=== PATIENT | female | born 1980 | race African-American/Black ===

== ENCOUNTER 2016-10-02 16:32 | Emergency (ER) | payer BC ==
[~2016-10-02] VITALS: Ht 157.5 cm; Wt 56.7 kg
[~2016-10-02 16:32] MED LIST: ADVIL200 MG ORAL; AZITHROMYCIN250 MG ORAL; NKM; NORCO 5-325 TA1 EACH ORAL; PHENERGAN6.25 MG/5 ORAL
[2016-10-02 16:46] VITALS: BP 112/70
[2016-10-02] MEDS ORDERED: Metoclopramide 10mg/10ml Liq ORAL ONE (17:00)
[2016-10-02] MEDS ORDERED: ZOFRAN4 M3 ORAL (17:05)
[2016-10-02] MEDS ORDERED: IBUPROFEN600 MG ORAL (17:05)
[2016-10-02] MEDS ORDERED: ROBAXIN-750750 MG PO (17:05)
[2016-10-02 17:10] VITALS: BP 112/70
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
== END 2016-10-02 17:15 | disposition home or self-care (01) ==
LOC: EMR 17:03
DX: S06.0X0A Concussion without loss of consciousness, initial encounter (principal); V43.52XA Car driver injured in collision with other type car in traffic accident, initial encounter; Y92.410 Unspecified street and highway as the place of occurrence of the external cause; M62.838 Other muscle spasm; M54.2 Cervicalgia
CPT/HCPCS: 81025; 99284

== ENCOUNTER 2016-10-14 12:21 | Emergency (ER) | payer BC ==
[~2016-10-14] VITALS: Ht 157.5 cm; Wt 54.4 kg
[~2016-10-14 12:21] MED LIST changes: +IBUPROFEN600 MG ORAL; +ROBAXIN-750750 MG PO; +ZOFRAN4 M3 ORAL
[2016-10-14] MEDS ORDERED: SUMATRIPTAN SU100 MG PO (12:46)
[2016-10-14] MEDS ORDERED: Ketorolac 60mg Inj IM ONE (13:15)
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
[2016-10-14] MEDS ORDERED: Metoclopramide 10mg/2ml Inj IM SCH (14:00)
[2016-10-14 14:13] VITALS: BP 107/74
[2016-10-14 14:19] VITALS: BP 107/74
== END 2016-10-14 14:20 | disposition home or self-care (01) ==
LOC: EMR 12:55
DX: R51 Headache (principal); F45.8 Other somatoform disorders; Z87.820 Personal history of traumatic brain injury
CPT/HCPCS: 96372; 99282; J2765

== ENCOUNTER 2017-05-15 00:16 | Inpatient (IN) | payer BC ==
[~2017-05-15] VITALS: Ht 157.5 cm; Wt 54.4 kg
[2017-05-15] VITALS (7 sets, daily range): BP systolic 110–135; BP diastolic 73–89
[~2017-05-15 00:16] MED LIST changes: +SUMATRIPTAN SU100 MG PO
[2017-05-15] MEDS ORDERED: Metoclopramide 10mg/2ml Inj IVP ONE (00:45)
[2017-05-15] MEDS ORDERED: DiphenhydrAMINE 50mg/ml Inj IVP ONE (00:45)
[2017-05-15] MEDS ORDERED: Ketorolac 30mg Inj IV ONE (00:45)
[2017-05-15 01:17] LABS: MEAN CORPUSCULAR HEMOGLOBIN 33.8 PG (27.0-31.0); MEAN CORPUSCULAR VOLUME 99 FL (80-99); MEAN PLATELET VOLUME 7.3 FL (6.5-10.1); PLATELET COUNT 288 K/UL (150-450); RED BLOOD COUNT 4.13 M/UL (4.20-5.40); RED CELL DISTRIBUTION WIDTH 10.2 % (11.6-14.8); WHITE BLOOD COUNT 8.9 K/UL (4.8-10.8)
[2017-05-15 01:21] LABS: APPEARANCE,URINE CLEAR; KETONES,URINE 4+ (NEGATIVE); LEUKOCYTE ESTERASE ,URINE 1+ (NEGATIVE); NITRITE,URINE NEGATIVE (NEGATIVE); PH,URINE 9 (4.5-8.0); PROTEIN,URINE 1+ (NEGATIVE); UROBILINOGEN,URINE 4 MG/DL (0.0-1.0)
[2017-05-15] MEDS ORDERED: Morphine Sulfate 4mg/ml Inj IVP ONE ×2 (01:45→03:45)
[2017-05-15 02:35] LABS: ALANINE AMINOTRANSFERASE 17 U/L (12-78); ANION GAP 13 (5-15); ASPARTATE AMINO TRANSFERASE 16 U/L (15-37); CALCIUM 9.9 MG/DL (8.5-10.1); CARBON DIOXIDE 21 MMOL/L (21-32); CHLORIDE 100 MMOL/L (98-107); GLOMERULAR FILTRATION RATE > 60 mL/min (>60); LIPASE 145 U/L (73-393); POTASSIUM 3.6 MMOL/L (3.5-5.1); SODIUM 134 MMOL/L (136-145); TOTAL PROTEIN 8.9 G/DL (6.4-8.2)
[2017-05-15 03:48] LABS: BACTERIA,URINE OCCASIONAL /HPF; RBC,URINE 0-2 /HPF (0 - 2); SQUAMOUS EPITHELIAL CELL,UR MODERATE /LPF (NONE/OCC)
[2017-05-15 05:06] LABS: BILIRUBIN,DIRECT 0.4 MG/DL (0.0-0.3)
--- NOTE | 2017-05-15 05:21 | Emergency Room Report ---
History of Present Illness General Chief Complaint: Abdominal Pain Source: Patient Present Illness HPI Patient presents with complaints of abdominal pain vomiting and diarrhea Symptoms started earlier today Patient's mom reports that they had eaten carls Koby Soon after that patient began having vomiting episode mid abdominal pain Patient points to her mid umbilical area for the pain Denies any fevers or chills denies any flank pain Rates the pain as 10 out of 10 Patient has had recent breast augmentation to the umbilical cord, patient had cyst removal 12 years ago Allergies: Coded Allergies: No Known Allergies (Unverified , 04/10/14) Patient History Past Medical History: see triage record Pertinent Family History: none Last Menstrual Period: may 03 Now: No : 4 Reviewed Nursing Documentation: PMH: Agreed, PSxH: Agreed Nursing Documentation-PMH Past Medical History: No Stated History Review of Systems All Other Systems: negative except mentioned in HPI Physical Exam Vital Signs Date Time Temp Pulse Resp B/P (MAP) Pulse Ox O2 Delivery O2 Flow Rate FiO2 05/15/17 00:23 97.5 71 18 116/76 98 Room Air Sp02 EP Interpretation: reviewed, normal General Appearance: moderate distress - In acute pain Head: normocephalic, atraumatic Eyes: bilateral eye PERRL, bilateral eye EOMI ENT: hearing grossly normal, normal pharynx, TMs + canals normal, uvula midline Neck: full range of motion, supple, no meningismus, no bony tend Respiratory: lungs clear, normal breath sounds, no rhonchi, no respiratory distress, no retraction, no accessory muscle use Cardiovascular #1: normal peripheral pulses, regular rate, rhythm, no edema, no gallop, no JVD, no murmur Gastrointestinal: normal bowel sounds, soft, no mass, no organomegaly, non- distended, no guarding, no hernia, no pulsatile mass, no rebound, tenderness - diffusely Genitourinary: no CVA tenderness Musculoskeletal: normal inspection Neurologic: oriented x3, responsive, billing supervisor III-XII nml as tested, motor strength/ tone normal, sensory intact Psychiatric: mood/affect normal Skin: normal color, no rash, warm/dry, palpation normal Lymphatic: normal inspection, no adenopathy Medical Decision Making Diagnostic Impression: Primary Impression: SBO (small bowel obstruction) ER Course With the history exam and presentation, multiple differentials considered, including but not limited to appendicitis, gastritis, cholecystitis, diverticulitis Patient had blood work and imaging study initiated CAT scan imaging is read by radiology as consistent with small bowel obstruction Patient has NG-tube ordered Patient will be remaining n.p.o. General surgery consultation and admitted for further care Labs Test 05/15/17 00:48 White Blood Count 8.9 K/UL (4.8-10.8) Red Blood Count 4.13 M/UL (4.20-5.40) Hemoglobin 14.0 G/DL (12.0-16.0) Hematocrit 41.1 % (37.0-47.0) Mean Corpuscular Volume 99 FL (80-99) Mean Corpuscular Hemoglobin 33.8 PG (27.0-31.0) Mean Corpuscular Hemoglobin Concent 34.0 G/DL (32.0-36.0) Red Cell Distribution Width 10.2 % (11.6-14.8) Platelet Count 288 K/UL (150-450) Mean Platelet Volume 7.3 FL (6.5-10.1) Neutrophils (%) (Auto) % (45.0-75.0) Lymphocytes (%) (Auto) % (20.0-45.0) Monocytes (%) (Auto) % (1.0-10.0) Eosinophils (%) (Auto) % (0.0-3.0) Basophils (%) (Auto) % (0.0-2.0) Urine Color Yellow Urine Appearance Clear Urine pH 9 (4.5-8.0) Urine Specific [place] 1.020 (1.005-1.035) Urine Protein 1+ (NEGATIVE) Urine Glucose (UA) Negative (NEGATIVE) Urine Ketones 4+ (NEGATIVE) Urine Occult Blood Negative (NEGATIVE) Urine Nitrite Negative (NEGATIVE) Urine Bilirubin Negative (NEGATIVE) Urine Urobilinogen 4 MG/DL (0.0-1.0) Urine Leukocyte Esterase 1+ (NEGATIVE) Urine RBC 0-2 /HPF (0 - 2) Urine WBC 2-4 /HPF (0 - 2) Urine Squamous Epithelial Cells Moderate /LPF (NONE/OCC) Urine Bacteria Occasional /HPF (NONE) Urine HCG, Qualitative Negative Sodium Level 134 MMOL/L (136-145) Potassium Level 3.6 MMOL/L (3.5-5.1) Chloride Level 100 MMOL/L (98-107) Carbon Dioxide Level 21 MMOL/L (21-32) Anion Gap 13 (5-15) Blood Urea Nitrogen 13 mg/dL (7-18) Creatinine 1.0 MG/DL (0.55-1.30) Estimat Glomerular Filtration Rate > 60 mL/min (>60) Glucose Level 109 MG/DL (74-106) Calcium Level 9.9 MG/DL (8.5-10.1) Total Bilirubin 2.0 MG/DL (0.2-1.0) Direct Bilirubin 0.4 MG/DL (0.0-0.3) Aspartate Amino Transf (AST/SGOT) 16 U/L (15-37) Alanine Aminotransferase (ALT/SGPT) 17 U/L (12-78) Alkaline Phosphatase 61 U/L (46-116) Total Protein 8.9 G/DL (6.4-8.2) Albumin 4.6 G/DL (3.4-5.0) Lipase 145 U/L (73-393) CT/MRI/US Diagnostic Results CT/MRI/US Diagnostic Results : Impression CT abdomen pelvis: Findings consistent with small bowel obstruction Last Vital Signs Date Time Temp Pulse Resp B/P (MAP) Pulse Ox O2 Delivery O2 Flow Rate FiO2 05/15/17 01:33 97.6 05/15/17 00:23 71 18 116/76 98 Room Air Status: improved Disposition: ADMITTED INPATIENT Condition: Serious Referrals: [facility],REFERRING (PCP) SYLVIA PEREIRA D.O. May 15, 2017 05:21
[2017-05-15 05:31] LABS: ALBUMIN/GLOBULIN RATIO 1.1 (1.0-2.7)
--- NOTE | 2017-05-15 09:16 | Diagnostic Imaging Report ---
Indication: Abdominal pain Technique: Continuous helical transaxial imaging of the abdomen and pelvis was obtained from the lung bases to the pubic symphysis during intravenous contrast administration. Coronal 2-D reformats were also obtained. Study obtained in a Siemens sensation [address] Total Dose length Product (DLP): [address] Dose Index Volume (CTDIvol): 11.29, 0.15 mGy Comparison: None Findings: The lung bases are clear. There are multiple moderately distended and fluid-filled loops of small bowel. There is a transition noted in the left lower quadrant images 46-49. There is retained stool within the colon. The uterus and adnexa appear unremarkable. Bladder is unremarkable. No free air or free fluid identified. The liver, spleen, pancreas, gallbladder and kidneys are unremarkable. Impression: Evidence of small bowel obstruction with the transition identified in the left lower quadrant of abdomen. [facility] has communicated the preliminary results to the Emergency Department. Their findings are largely concordant with this report. The CT scanner at [facility] is accredited by the [employer] [place] and the scans are performed using dose optimization techniques as appropriate to a performed exam including Automatic Exposure control.
[2017-05-15 10:08] LABS: BAND NEUTROPHILS % (MANUAL) 0 % (0-8); BASOPHILS % (MANUAL) 0 % (0-2); EOSINOPHILS % (MANUAL) 0 % (0-3); LYMPHOCYTES % (MANUAL) 5 % (20-45); NEUTROPHILS % (MANUAL) 91 % (45-75); PLATELET ESTIMATE ADEQUATE; PLATELET MORPHOLOGY NORMAL; TOTAL CELLS COUNTED 100
--- NOTE | 2017-05-15 10:24 | General Progress Note ---
Progress Note Progress Note Called by ed this am for pt with sbo. pt seen and examined. CT reviewed with radioloogist consult dictated [id number] Imp SBO Etio possibly 2o to adhesions from previosl surgery Plan Attempt nonoperative care with ng decompression, serial exams and xrays Ex lap if she cristofer not respond. thanks JOESPH Jean-Baptiste May 15, 2017 10:24
[2017-05-15] MEDS: HYDROmorphone 1mg/ml Carpuject IVP PRN ×3 (11:00→22:37)
--- NOTE | 2017-05-15 13:42 | GI Initial Consult Note ---
History of Present Illness General Date patient seen: May 15, 2017 Time patient seen: 10:00 Reason for Hospitalization: Abdominal Pain Referring physician: BEENA STYLES Reason for Consultation: ABDOMINAL PAIN Present Illness HPI Patient presents with complaints of abdominal pain vomiting and diarrhea Symptoms started earlier today Patient's mom reports that they had eaten carls [place]oby Soon after that patient began having vomiting episode mid abdominal pain Patient points to her mid umbilical area for the pain Denies any fevers or chills denies any flank pain Rates the pain as 10 out of 10 Patient has had recent breast augmentation to the umbilical cord, patient had cyst removal 12 years ago GI consulted for abdominal pain. HPI as noted above. Pt seen on floor, awake A&Ox4 NAD with c/o of N/D currently on NPO, NGT to LIS. AP CT shows LLQ SBO most likely due to intestinal adhesions. Presents today with elevated bilirubin. No leukocytosis noted. Home Meds Active Scripts Ondansetron* (ZOFRAN*) 4 Mg Tablet, 4 MG ORAL Q6H Y for Nausea & Vomiting, #10 TAB Prov:TERZIAN,KRISTEN P.A. 10/02/16 Methocarbamol* (ROBAXIN-750*) 750 Mg Tablet, 750 MG PO TID, #21 TAB 0 Refills Prov:TERZIAN,KRISTEN P.A. 10/02/16 Ibuprofen* (MOTRIN*) 600 Mg Tablet, 600 MG ORAL Q8H Y for For Pain, #30 TAB 0 Refills Prov:TERZIAN,KRISTEN P.A. 10/02/16 Promethazine/Dextromethorphan (Promethazine-Dm Syrup) 6.25 Mg/5 Ml Syrp, 1 TSP ORAL Q6H Y for For Cough, #118 ML 0 Refills Prov:Nicola Sánchez 08/25/15 Azithromycin* (ZITHROMAX*) 250 Mg Tablet, 250 MG ORAL DAILY, #6 TAB Prov:Nicola Sánchez 08/25/15 Hydrocodone Bit/Acetaminophen 5-325* (NORCO 5-325*) 1 Each Tablet, 1 TAB ORAL Q6H Y for For Pain, #20 TAB Prov:JOSE RAFAEL HARTLEY P.A. 04/10/14 Reported Medications Sumatriptan Succinate (SUMATRIPTAN SUCCINATE) 100 Mg Tablet, 100 MG PO BID, TAB 10/14/16 Ibuprofen* (ADVIL*) 200 Mg Tablet, 400 MG ORAL Q6H, TAB 04/10/14 Med list reviewed/reconciled: Yes Allergies: Coded Allergies: No Known Allergies (Unverified , 04/10/14) Patient History History Provided By: Patient, Medical Record PMH Narrative Past Medical History: see triage record Pertinent Family History: none Last Menstrual Period: May 03 Now: No : 4 Reviewed Nursing Documentation: PMH: Agreed, PSxH: Agreed Review of Systems All Other Systems: negative except mentioned in HPI Physical Exam Vital Signs Date Time Temp Pulse Resp B/P (MAP) Pulse Ox O2 Delivery O2 Flow Rate FiO2 05/15/17 00:23 97.5 71 18 116/76 98 Room Air Sp02 EP Interpretation: reviewed Labs Laboratory Tests Test 05/15/17 00:48 White Blood Count 8.9 K/UL (4.8-10.8) Red Blood Count 4.13 M/UL (4.20-5.40) L Hemoglobin 14.0 G/DL (12.0-16.0) Hematocrit 41.1 % (37.0-47.0) Mean Corpuscular Volume 99 FL (80-99) Mean Corpuscular Hemoglobin 33.8 PG (27.0-31.0) H Mean Corpuscular Hemoglobin Concent 34.0 G/DL (32.0-36.0) Red Cell Distribution Width 10.2 % (11.6-14.8) L Platelet Count 288 K/UL (150-450) Mean Platelet Volume 7.3 FL (6.5-10.1) Neutrophils (%) (Auto) % (45.0-75.0) Lymphocytes (%) (Auto) % (20.0-45.0) Monocytes (%) (Auto) % (1.0-10.0) Eosinophils (%) (Auto) % (0.0-3.0) Basophils (%) (Auto) % (0.0-2.0) Differential Total Cells Counted 100 Neutrophils % (Manual) 91 % (45-75) H Lymphocytes % (Manual) 5 % (20-45) L Monocytes % (Manual) 4 % (1-10) Eosinophils % (Manual) 0 % (0-3) Basophils % (Manual) 0 % (0-2) Band Neutrophils 0 % (0-8) Platelet Estimate Adequate Platelet Morphology Normal Urine Color Yellow Urine Appearance Clear Urine pH 9 (4.5-8.0) Urine Specific [place] 1.020 (1.005-1.035) Urine Protein 1+ (NEGATIVE) H Urine Glucose (UA) Negative (NEGATIVE) Urine Ketones 4+ (NEGATIVE) H Urine Occult Blood Negative (NEGATIVE) Urine Nitrite Negative (NEGATIVE) Urine Bilirubin Negative (NEGATIVE) Urine Urobilinogen 4 MG/DL (0.0-1.0) H Urine Leukocyte Esterase 1+ (NEGATIVE) H Urine RBC 0-2 /HPF (0 - 2) Urine WBC 2-4 /HPF (0 - 2) Urine Squamous Epithelial Cells Moderate /LPF (NONE/OCC) H Urine Bacteria Occasional /HPF (NONE) Urine HCG, Qualitative Negative Sodium Level 134 MMOL/L (136-145) L Potassium Level 3.6 MMOL/L (3.5-5.1) Chloride Level 100 MMOL/L (98-107) Carbon Dioxide Level 21 MMOL/L (21-32) Anion Gap 13 (5-15) Blood Urea Nitrogen 13 mg/dL (7-18) Creatinine 1.0 MG/DL (0.55-1.30) Estimat Glomerular Filtration Rate > 60 mL/min (>60) Glucose Level 109 MG/DL (74-106) H Calcium Level 9.9 MG/DL (8.5-10.1) Total Bilirubin 2.0 MG/DL (0.2-1.0) H Direct Bilirubin 0.4 MG/DL (0.0-0.3) H Aspartate Amino Transf (AST/SGOT) 16 U/L (15-37) Alanine Aminotransferase (ALT/SGPT) 17 U/L (12-78) Alkaline Phosphatase 61 U/L (46-116) Total Protein 8.9 G/DL (6.4-8.2) H Albumin 4.6 G/DL (3.4-5.0) Globulin 4.3 g/dL Albumin/Globulin Ratio 1.1 (1.0-2.7) Lipase 145 U/L (73-393) General Appearance: well appearing, no apparent distress, alert Head: normocephalic EENT: PERRL/EOMI, normal ENT inspection Neck: full range of motion, supple Respiratory: normal breath sounds, no respiratory distress Cardiovascular: normal rate Gastrointestinal: ngt Musculoskeletal: back normal Neurologic: alert, oriented x3, responsive Psychiatric: normal inspection, judgement/insight normal, memory normal Skin: normal inspection, normal color, no rash, warm/dry Lymphatic: normal inspection, no adenopathy Current Medications Current Medications Medications (Trade) Dose Ordered Sig/Tori Route PRN Reason Start Time Stop Time Status Last Admin Dose Admin Dextrose/ Electrolytes 1,000 ml @ 125 mls/hr Q8H IV 05/16/17 13:00 06/15/17 12:59 Hydromorphone HCl (Dilaudid) 1 mg Q4H PRN IVP For Pain 05/15/17 10:45 05/22/17 10:44 05/15/17 11:00 GI: Plan Problems: (1) SBO (small bowel obstruction) Plan fu surgical recs >> SBO 2/2 adhesions from previous surgery trial of non operative management, ex lap if fails. NPO + IVFs bowel decompression >> NGT to LIS pain mgmt serial monitoring repeat imaging prn abx fu labs Discussed with Dr. Richards. Thank you for this patient referral, we will follow. Daniella Del Toro N.P. May 15, 2017 13:42
--- NOTE | 2017-05-15 13:58 | Diagnostic Imaging Report ---
Indication: Abdominal pain Comparison: None Single view of the abdomen obtained Findings: Bowel gas pattern is nonspecific. NG tube is in good position with the proximal and distal ports in the stomach. No mass, ectopic calcifications, or abnormal gas collections are identified. The bones are unremarkable. Impression: NG-tube in good position. No acute findings.
--- NOTE | 2017-05-15 17:45 | Consultation ---
DATE OF CONSULTATION: 05/15/2017 SURGICAL CONSULTATION SURGEON: Juan Alberto Reyes M.D. REASON FOR CONSULT: Abdominal pain and small bowel obstruction. PRESENT HISTORY: This is a very pleasant 37-year-old woman, presented to the [facility] with complaints of abdominal pain. The patient had presented with vomiting and diarrhea starting yesterday. The patient's pain began after eating at a fast food restaurant. Pain localized to the umbilical area. She has had multiple episodes of diarrhea for same. She had no previous symptoms. PAST MEDICAL HISTORY: Unremarkable. PAST SURGICAL HISTORY: She had a pelvic surgery for removal of a cyst some 12 years ago. She is also status post breast augmentation that was done through an umbilical incision. ALLERGIES: None. MEDICATIONS: Taken none. REVIEW OF SYSTEMS: PULMONARY: No history of asthma, bronchitis, emphysema, or pneumonia. CARDIAC: No history of chest pains, palpitations, or irregular heartbeat. GASTROINTESTINAL: No history of prior to today nausea, vomiting, diarrhea, constipation, hepatitis, jaundice, or pancreatitis. GENITOURINARY: No dysuria or hematuria. PHYSICAL EXAMINATION: GENERAL: A well-developed woman, in [id number] distress. Awake, alert, and cooperative. VITAL SIGNS: Temperature is 97.6, pulse is 65, respirations 18, blood pressure 119/76, and O2 saturation of 97%. HEENT: NG is in place, but not . It has been repositioned. NECK: Supple. LUNGS: Clear. HEART: Normal sinus rhythm. ABDOMEN: Mildly distended. There are scars from previous surgeries. She does have an umbilical hernia that is reducible. EXTREMITIES: No clubbing, cyanosis, or edema. LABORATORY DATA: Laboratory exams show white blood count of 8.9, hemoglobin 14, hematocrit of 41.1, and platelet count is 288,000. Chemistry, sodium 134, potassium 3.6, chloride 100, bicarbonate 21, creatinine is 1.0, BUN of 13, glucose 109, total bilirubin 2.0, direct bilirubin 0.4, AST of 16, ALT of 17, alkaline phosphatase of 61, and lipase is 147. CT scan reviewed with the radiologist, which does show evidence of a small bowel obstruction with multiple moderately distended fluid-filled loops of small bowel, transition in the left lower quadrant. IMPRESSION: 1. Abdominal pain. 2. Partial small bowel obstruction. PLAN: The patient is undergoing NG decompression. We will get serial x-rays and laboratories. I have explained to the patient in detail the differential diagnosis of bowel obstruction. We hope that this can be resolved nonsurgically with NG decompression in time. Possibly she may require surgery, which would involve exploratory laparotomy and possible bowel resection. She understands the above and agrees with the plan. Juan Alberto Reyes M.D. DR: LARS JOB#: [id number] CC: Juan Alberto Millan M.D.; Fax#: [phone] BEENA STYLES M.D. ; FAX#: [phone]
[2017-05-16] VITALS: BP 116/80
--- NOTE | 2017-05-16 01:30 | History and Physical Report ---
DATE OF ADMISSION: 05/15/2017 HISTORY OF PRESENT ILLNESS: This is a 37-year-old female, who has past medical history of surgery on abdomen for ovarian cyst removal, also has breast augmentation and came to the emergency room for having recurrent nausea, vomiting, and abdominal pain one day prior to admission. The patient claims she has been eating lot of grains and liquids. She has no fever. No chills. PAST MEDICAL HISTORY: Anxiety and status post ovarian cyst surgery. ALLERGIES: NKA. MEDICATIONS: None. PHYSICAL EXAMINATION: GENERAL: This is a young, female, looks comfortable. Her pain level is 4/10. VITAL SIGNS: Blood pressure 120/70, pulse 60, and respirations 18. No fever. SKIN: Good skin turgor. HEENT: NAD. CHEST: Bilaterally clear. CARDIOVASCULAR: Regular rhythm. No gallop. No murmur. ABDOMEN: No bowel sounds. Mild tenderness. EXTREMITIES: No CCE. NEUROLOGICAL: No focal deficit. ASSESSMENT: 1. Small bowel obstruction. 2. Status post ovarian cyst removal. 3. History of breast augmentation. PLAN: We will keep her NPO. NG tube suction low to intermittent. Continue IV fluid, morphine, and Ativan p.r.n. for anxiety. Surgery is on case. Bradley De La Cruz M.D. DR: HECTOR JOB#: [id number] CC:
[2017-05-16] MEDS: HYDROmorphone 1mg/ml Carpuject IVP PRN ×5 (03:45→20:29)
[2017-05-16 04:00] VITALS: BP 110/75
[2017-05-16 08:49] VITALS: BP 123/85
[2017-05-16 09:40] LABS: BASOPHILS % (AUTO) 1.2 % (0.0-2.0); MEAN CORPUSCULAR HEMOGLOBIN 33.6 PG (27.0-31.0); MEAN CORPUSCULAR HGB CONC 32.8 G/DL (32.0-36.0); MEAN CORPUSCULAR VOLUME 103 FL (80-99); MEAN PLATELET VOLUME 7.2 FL (6.5-10.1); NEUTROPHILS % (AUTO) 76.8 % (45.0-75.0); PLATELET COUNT 221 K/UL (150-450); RED BLOOD COUNT 3.69 M/UL (4.20-5.40); RED CELL DISTRIBUTION WIDTH 10.6 % (11.6-14.8); WHITE BLOOD COUNT 8.4 K/UL (4.8-10.8)
--- NOTE | 2017-05-16 09:41 | General Progress Note ---
Assessment/Plan Problem List: (1) SBO (small bowel obstruction) ICD Codes: K56.609 - Unspecified intestinal obstruction, unspecified as to partial versus complete obstruction SNOMED: 440433289 Assessment/Plan ambulate daily exam NGT fu surgery recs Subjective ROS Limited/Unobtainable: Yes Allergies: Coded Allergies: No Known Allergies (Unverified , 04/10/14) Subjective decreased abd pain no flatus Objective Last 24 Hour Vital Signs Date Time Temp Pulse Resp B/P (MAP) Pulse Ox O2 Delivery O2 Flow Rate FiO2 05/16/17 08:49 97.5 67 20 123/85 99 Room Air 05/16/17 04:00 97.4 61 17 110/75 96 Room Air 05/16/17 00:00 97.5 60 17 116/80 96 Room Air 05/15/17 20:00 97.8 59 18 116/75 95 Room Air 05/15/17 12:00 97.7 63 18 110/73 96 Room Air Laboratory Tests 05/16/17 08:40: White Blood Count [Pending], Red Blood Count [Pending], Hemoglobin [Pending], Hematocrit [Pending], Mean Corpuscular Volume [Pending], Mean Corpuscular Hemoglobin [Pending], Mean Corpuscular Hemoglobin Concent [Pending], Red Cell Distribution Width [Pending], Platelet Count [Pending], Mean Platelet Volume [ Pending], Neutrophils (%) (Auto) [Pending], Lymphocytes (%) (Auto) [Pending], Monocytes (%) (Auto) [Pending], Eosinophils (%) (Auto) [Pending], Basophils (%) (Auto) [Pending], Sodium Level [Pending], Potassium Level [Pending], Chloride Level [Pending], Carbon Dioxide Level [Pending], Blood Urea Nitrogen [Pending], Creatinine [Pending], Estimat Glomerular Filtration Rate [Pending], Glucose Level [Pending], Calcium Level [Pending], Total Bilirubin [Pending], Aspartate Amino Transf (AST/SGOT) [Pending], Alanine Aminotransferase (ALT/SGPT) [Pending] , Alkaline Phosphatase [Pending], Total Protein [Pending], Albumin [Pending], Globulin [Pending] Height (Feet): 5 Height (Inches): 2.00 Weight (Pounds): 120 General Appearance: alert EENT: normal ENT inspection Neck: supple Cardiovascular: normal rate Respiratory/Chest: lungs clear Abdomen: non tender, soft, absent bowel sounds Extremities: non-tender JESSIE NEFF May 16, 2017 09:41
--- NOTE | 2017-05-16 10:05 | Diagnostic Imaging Report ---
The patient: Abdominal distention Comparison: 05/15/2013 Findings: Portable supine view of the abdomen was performed. Nasogastric tube is seen with distal tip overlying the expected region of the stomach. There is a nonobstructive bowel gas pattern. No significantly dilated loops of bowel, air-fluid levels or free air is identified. Gas and stool seen throughout the colon. Bones are unremarkable. Impression: Nasogastric tube appears to be in good position. Nonobstructive bowel gas pattern.
--- NOTE | 2017-05-16 10:35 | General Progress Note ---
Progress Note Progress Note Surgery: patient seen and examined at bedside. no acute events. doing well. pain resolved. no n/v/f/c. minimal NG tube output. no flatus or BM yet. Afebrile, HD stable, KUB reviewed, labs okay Abdomen soft, nt/nd, bowel sounds hypoactive 37F with SBO; slowly improving -NPO with IV fluids -okay for ice chips -NG tube to suction -Ambulate and OOB -awaiting return of bowel function Tano Ibrahim May 16, 2017 10:35
[2017-05-16 10:48] LABS: ALANINE AMINOTRANSFERASE 14 U/L (12-78); ALBUMIN/GLOBULIN RATIO 0.9 (1.0-2.7); ANION GAP 8 (5-15); ASPARTATE AMINO TRANSFERASE 14 U/L (15-37); CARBON DIOXIDE 23 MMOL/L (21-32); CHLORIDE 104 MMOL/L (98-107); CREATININE 0.8 MG/DL (0.55-1.30); GLOMERULAR FILTRATION RATE > 60 mL/min (>60); POTASSIUM 3.7 MMOL/L (3.5-5.1); SODIUM 135 MMOL/L (136-145); TOTAL PROTEIN 7.3 G/DL (6.4-8.2)
[2017-05-16] MEDS: LORazepam 0.5mg tab SL PRN (10:51)
[2017-05-16 11:21] LABS: CALCIUM 8.3 MG/DL (8.5-10.1)
[2017-05-16 11:55] VITALS: BP 127/82
[2017-05-16 12:18] LABS: BILIRUBIN,DIRECT 0.2 MG/DL (0.0-0.3)
[2017-05-16 16:01] VITALS: BP 125/76
[2017-05-16 20:20] VITALS: BP 130/82
[2017-05-17] VITALS: BP 136/81
[2017-05-17] MEDS: HYDROmorphone 1mg/ml Carpuject IVP PRN ×5 (01:28→22:56)
[2017-05-17 04:00] VITALS: BP 123/80
[2017-05-17 08:00] VITALS: BP 119/79
--- NOTE | 2017-05-17 11:51 | General Progress Note ---
Assessment/Plan Problem List: (1) SBO (small bowel obstruction) ICD Codes: K56.609 - Unspecified intestinal obstruction, unspecified as to partial versus complete obstruction SNOMED: 197923999 Assessment/Plan ambulate daily exam NGT was removed fu surgery recs kub dulcolax sup Subjective ROS Limited/Unobtainable: Yes Allergies: Coded Allergies: No Known Allergies (Unverified , 04/10/14) Subjective decreased abd pain no flatus Objective Last 24 Hour Vital Signs Date Time Temp Pulse Resp B/P (MAP) Pulse Ox O2 Delivery O2 Flow Rate FiO2 05/17/17 08:00 97.6 81 20 119/79 97 Room Air 05/17/17 04:00 98.0 71 16 123/80 100 Room Air 05/17/17 00:00 98.3 70 16 136/81 98 Room Air 05/16/17 20:20 97.4 68 20 130/82 100 Room Air 05/16/17 16:01 98.9 68 20 125/76 97 Room Air 05/16/17 11:55 97.8 66 20 127/82 100 Room Air Intake and Output 05/17/17 05/18/17 19:00 07:00 Intake Total 860 ml Balance 860 ml Intake Oral 360 ml IV Total 500 ml # Voids 2 Height (Feet): 5 Height (Inches): 2.00 Weight (Pounds): 120 General Appearance: no apparent distress EENT: normal ENT inspection Neck: supple Cardiovascular: normal rate Respiratory/Chest: decreased breath sounds Abdomen: soft, decreased bowel sounds, distended Extremities: non-tender JESSIE NEFF May 17, 2017 11:51
[2017-05-17 12:00] VITALS: BP 124/84
--- NOTE | 2017-05-17 14:04 | General Progress Note ---
Progress Note Progress Note Surgery: no acute events. ng tube removed this AM. no nausea or emesis. no fever or chills. labs okay. exam with more distention today. soft, non tender, but tympanic. -NPO. she is NOT ready for a diet -IV fluids @ 125 -enema prn -awaiting return of bowel function -KULily tomorrow. Tano Ibrahim May 17, 2017 14:04
[2017-05-17] MEDS ORDERED: Fleet's Enema 133ml RECTAL ONE (14:15)
[2017-05-17] MEDS ORDERED: Fleet's Enema 133ml RECTAL PRN ×2 (14:15→15:00)
[2017-05-17] MEDS ORDERED: NS 275ml ONE (15:32)
[2017-05-17 16:00] VITALS: BP_SYST 109; BP_SYST 112; BP_DIAS 67; BP_DIAS 73
[2017-05-17] MEDS: LORazepam 0.5mg tab SL PRN (17:53)
[2017-05-17 20:00] VITALS: BP 125/78
[2017-05-18 04:00] VITALS: BP 116/64
[2017-05-18] MEDS: HYDROmorphone 1mg/ml Carpuject IVP PRN (05:21)
[2017-05-18 08:00] VITALS: BP 115/87
--- NOTE | 2017-05-18 08:31 | Progress Note ---
DATE: 05/16/2017 SUBJECTIVE: This is a 37-year-old female, sleeping in the bed, comfortable. Pain is controlled. Pain is much better. Nausea and vomiting resolved. The patient had NG tube. patient is, otherwise, comfortable. She has no bowel sounds. The patient has been moving. OBJECTIVE: VITAL SIGNS: Stable. CHEST: Bilaterally clear. CARDIOVASCULAR: Regular rhythm. ABDOMEN: Soft. Positive bowel sounds. No tenderness. EXTREMITIES: No swelling. ASSESSMENT AND PLAN: 1. Small bowel obstruction. 2. Status post ovarian surgery. PLAN: Continue NG tube. . Continue Zofran. Continue morphine. We will discontinue NG tube tomorrow. We will start clear liquid diet. The patient probably can go home tomorrow. . Bradley De La Cruz M.D. DR: HECTOR JOB#: [id number] CC:
--- NOTE | 2017-05-18 10:47 | Diagnostic Imaging Report ---
Indication: Abdominal pain Technique: Supine view of the abdomen Comparison: 05/16/2017 Findings: Previous demonstrated nasogastric tube is no longer evident. Prominent borderline dilated mid abdominal small bowel loops are again demonstrated. There is increased stool in the right colon. Impression: Prominent borderline nondilated gas-filled mid abdominal small bowel loops again demonstrated, also demonstrated on recent studies, as well as on CT of 05/15/2017. May reflect persistent small bowel obstruction
[2017-05-18 12:00] VITALS: BP 120/75
--- NOTE | 2017-05-18 12:09 | General Progress Note ---
Progress Note Progress Note Surgery: no acute events. doing well. had emesis after pain meds. no nausea or emesis since she stopped taking pain meds. passing flatus. small BM no n/v/f/c. KUB improve exam with mild distention, soft, non tender, bs+ -start clear liquids -d/c pain meds -ambulate and oob -awaiting full return of bowel function Tano Ibrahim May 18, 2017 12:09
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
[2017-05-18 16:00] VITALS: BP 117/66
--- NOTE | 2017-05-18 19:48 | General Progress Note ---
Progress Note Progress Note Surgery: called to see patient at bedside. over the past few hours patient has noted worsening abdominal pain and has developed worsening nausea and multiple bouts of bilious emesis. patient made npo until my arrival at 5pm. when seen at bedside, patient seems uncomfortable and in mild distress. she is bending forward and in front of me had multiple episodes of large bilious emesis. when examined, patient noted to have a but more distended abdomen and has right lower quadrant tenderness now. abdomen tympanic as well. I had a long >1hr with patient and her friend over the phone. I explained the findings and the acuity of change in condition. I explained rational for npo, iv fluids, and ng tube. I also discuss rational for surgery. Patient agreed to npo and iv fluids. she absolutely refuses ng tube despite long discussion about risks and benefits. she asked for a second opinion and Dr. Carrillo was available to come see the patient. Dr. Carrillo evaluated patient and records and agreed with decisions. when discussing surgery with patient he explained the risks, benefits, and alternatives to surgery with patient. During explanation patient expressed that she was no longer interested in surgery by a member or our surgical team and would prefer a new surgeon. Patient expresses that she wants surgery and that she understands that she needs given her acute changes but she is unhappy with the possible risks the surgery has and would not give informed consent if these are the risks that are possible. Both Dr. Carrillo and myself expressed that these risks are inherent to the surgery regardless of the surgeon and more associated with the surgery and not the specific surgeon. She expressed that she does not like the possible risks that may be associated with the surgery and would like another surgery to discuss surgery with her and operate on her. I expressed to her that she is placing herself in danger given persistent emesis. There is a strong recommendation for NG tube decompression and at the least a diagnostic laparoscopy. She expressed understanding with clear understanding. she verbalizes feedback of risks and continues to decline intervention and our services. Will discuss with primary physician and see if another surgeon is available to see the patient. Tano Ibrahim May 18, 2017 19:48
[2017-05-18 20:00] VITALS: BP 115/71
--- NOTE | 2017-05-18 20:54 | General Progress Note ---
Progress Note Progress Note Surgery: called back by patient to speak with mother and sister on the phone. with patients permission spoke with mother and sister. explained in detail current medical status and care from upon admission to this point. expressed rational for ng tube and surgery. patient and family asked me to stay on case and continue with care. patients mother and sister strongly recommended to patient to have ng tube placed and surgery as needed. patient still undecided and wants time to think about it. in the end she is an adult with full functional capability and clear mental status. she will need to decide what care she would or would not like. I will return in the morning to discuss with her again. I am available via cell and pager [employer] if needed. if change in condition or status please call me servando. Tano Ibrahim May 18, 2017 20:54
[2017-05-18] MEDS ORDERED: Chloraseptic Spray 20mL Bottle ORAL PRN (21:30)
[2017-05-18] MEDS: LORazepam 0.5mg tab SL PRN (22:16)
[2017-05-19] VITALS (11 sets, daily range): BP systolic 115–134; BP diastolic 72–81
[2017-05-19] MEDS: Pantoprazole Inj IVP SCH (09:00)
[2017-05-19 12:40] LABS: MEAN CORPUSCULAR HEMOGLOBIN 35.3 PG (27.0-31.0); MEAN CORPUSCULAR HGB CONC 35.1 G/DL (32.0-36.0); MEAN CORPUSCULAR VOLUME 101 FL (80-99); MEAN PLATELET VOLUME 7.5 FL (6.5-10.1); PLATELET COUNT 222 K/UL (150-450); RED CELL DISTRIBUTION WIDTH 10.1 % (11.6-14.8); WHITE BLOOD COUNT 4.6 K/UL (4.8-10.8)
[2017-05-19 12:48] LABS: ANION GAP 13 mmol/L (5-15); CALCIUM 8.9 MG/DL (8.5-10.1); CARBON DIOXIDE 23 MMOL/L (21-32); CHLORIDE 106 MMOL/L (98-107); GLOMERULAR FILTRATION RATE > 60 mL/min (>60); POTASSIUM 3.1 MMOL/L (3.5-5.1); SODIUM 142 MMOL/L (136-145)
--- NOTE | 2017-05-19 13:33 | Diagnostic Imaging Report ---
Indication: Abdominal pain Comparison: 05/18/17 Single view of the abdomen obtained Persistent dilated small bowel noted within the mid abdomen. Moderate fecal retention in the right hemicolon again noted. Findings are unchanged. Impression: No change management analyst the last day
[2017-05-19 13:45] LABS: LYMPHOCYTES % (MANUAL) 16 % (20-45); NEUTROPHILS % (MANUAL) 58 % (45-75); TOTAL CELLS COUNTED 100
[2017-05-19 13:46] LABS: BAND NEUTROPHILS % (MANUAL) 0 % (0-8); BASOPHILS % (MANUAL) 0 % (0-2); EOSINOPHILS % (MANUAL) 0 % (0-3); MACROCYTES 1+; PLATELET ESTIMATE ADEQUATE; PLATELET MORPHOLOGY NORMAL
[2017-05-19] MEDS ORDERED: Hydromorphone 0.5mg/0.5ml inj IVP PRN ×2 (14:15→18:30)
[2017-05-19] MEDS ORDERED: Lidocaine HCl 2% Jelly 5ml Tube TOPIC PRN (14:30)
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
[2017-05-19] MEDS ORDERED: Bupivacaine w/Epi 0.5% 30ml Vial INJ ONE (14:36)
--- NOTE | 2017-05-19 14:37 | Anethesia Preoperative Eval ---
Anesthesia Pre-op PMH/ROS General Date of Evaluation: May 19, 2017 Time of Evaluation: 16:22 Anesthesiologist: Pola ASA Score: ASA 3 Mallampati Score Class I : Soft palate, uvula, fauces, pillars visible Class II: Soft palate, uvula, fauces visible Class III: Soft palate, base of uvula visible Class IV: Only hard plate visible Mallampati Classification: Class II Surgeon: [place] Diagnosis: Small Bowel Obstruction Surgical Procedure: Relieve Small Bowel Obstruction Anesthesia History: none Family History: no anesthesia problems Allergies: Coded Allergies: No Known Allergies (Unverified , 04/10/14) Medications: see eMAR Past Medical History Gastrointestinal/Genitourinary: Reports: other - SBO Hematology/Immune: Reports: anemia PSxH Narrative: Ovarian Cyst, Breast Aug Anesthesia Pre-op Phys. Exam Physician Exam Last Vital Signs Date Time Temp Pulse Resp B/P (MAP) Pulse Ox O2 Delivery O2 Flow Rate FiO2 05/19/17 08:00 97.9 63 20 115/80 99 Room Air Constitutional: NAD Neurologic: CN 2-12 intact Cardiovascular: RRR Respiratory: CTA Gastrointestinal: S/NT/ND Airway Exam Mallampati Score: Class II MO: full ROM: full Teeth: intact Anesthesia Pre-op A/P Labs Hematology Test 05/19/17 12:15 White Blood Count 4.6 K/UL (4.8-10.8) L Red Blood Count 3.50 M/UL (4.20-5.40) L Hemoglobin 12.4 G/DL (12.0-16.0) Hematocrit 35.2 % (37.0-47.0) L Mean Corpuscular Volume 101 FL (80-99) H Mean Corpuscular Hemoglobin 35.3 PG (27.0-31.0) H Mean Corpuscular Hemoglobin Concent 35.1 G/DL (32.0-36.0) Red Cell Distribution Width 10.1 % (11.6-14.8) L Platelet Count 222 K/UL (150-450) Mean Platelet Volume 7.5 FL (6.5-10.1) Neutrophils (%) (Auto) % (45.0-75.0) Lymphocytes (%) (Auto) % (20.0-45.0) Monocytes (%) (Auto) % (1.0-10.0) Eosinophils (%) (Auto) % (0.0-3.0) Basophils (%) (Auto) % (0.0-2.0) Differential Total Cells Counted 100 Neutrophils % (Manual) 58 % (45-75) Lymphocytes % (Manual) 16 % (20-45) L Monocytes % (Manual) 26 % (1-10) H Eosinophils % (Manual) 0 % (0-3) Basophils % (Manual) 0 % (0-2) Band Neutrophils 0 % (0-8) Platelet Estimate Adequate Platelet Morphology Normal Macrocytosis 1+ Chemistry Test 05/19/17 12:15 Sodium Level 142 MMOL/L (136-145) Potassium Level 3.1 MMOL/L (3.5-5.1) L Chloride Level 106 MMOL/L (98-107) Carbon Dioxide Level 23 MMOL/L (21-32) Anion Gap 13 mmol/L (5-15) Blood Urea Nitrogen 8 mg/dL (7-18) Creatinine 1.0 MG/DL (0.55-1.30) Estimat Glomerular Filtration Rate > 60 mL/min (>60) Glucose Level 126 MG/DL (74-106) H Lactic Acid Level 1.60 mmol/L (0.66-2.22) Calcium Level 8.9 MG/DL (8.5-10.1) Risk Assessment & Plan Assessment: ASA 3 Plan: GA, BIS, Glidescope Status Change Before Surgery: No Pre-Antibiotics Dru Gram Ancef IV Given Within 1 Hr of Incision: Yes Time Given: 16:41 Jonel Escalona MD May 19, 2017 14:36
--- NOTE | 2017-05-19 16:08 | Pre-Procedure Note/Attestation ---
Pre-Procedure Note/Attestation Complete Prior to Procedure Planned Procedure: not applicable Procedure Narrative: diagnostic laparoscopy, possible laparotomy, possible bowel resection, possible ostomy Indications for Procedure Pre-Operative Diagnosis: bowel obstruction Attestation I attest that I discussed the nature of the procedure; its benefits; risks and complications; and alternatives (and the risks and benefits of such alternatives ), prior to the procedure, with the patient (or the patient's legal human resources representative). I attest that, if there was a reasonable possibility of needing a blood transfusion, the patient (or the patient's legal human resources representative) was given the [facility] standardized written summary, pursuant to the [place] Blood Safety Act ([place] Health and Safety Code # 1645, as amended). I attest that I re-evaluated the patient just prior to the surgery and that there has been no change in the patient's H&P, except as documented below: Tano Ibrahim May 19, 2017 16:08
[2017-05-19] MEDS ORDERED: Propofol 200mg/20ml IV ONE (16:17)
[2017-05-19] MEDS ORDERED: NS Irrig 1000ml ONE (16:22)
[2017-05-19] MEDS ORDERED: LR 1000ml ONE (16:22)
[2017-05-19] MEDS ORDERED: Lidocaine 1% MPF 10mg/ml 5ml ONE (16:22)
[2017-05-19] MEDS ORDERED: Glycopyrrolate 0.2mg/ml 1ml Vial ONE (16:22)
[2017-05-19] MEDS ORDERED: fentaNYL 100 mcg/2 mL IV ONE (16:22)
[2017-05-19] MEDS ORDERED: Neostigmine 1mg/ml 10ml Inj ONE (16:22)
[2017-05-19] MEDS ORDERED: Zemuron 50mg/5ml Inj IV ONE (16:22)
[2017-05-19] MEDS ORDERED: Dexamethasone 4mg/ml vial ONE (16:22)
[2017-05-19] MEDS ORDERED: Lidocaine 1% Plain 30 ml INJ ONE (16:22)
[2017-05-19] MEDS ORDERED: DiphenhydrAMINE 50mg/ml Inj IVP PRN (17:00)
[2017-05-19] MEDS ORDERED: Ketorolac 60mg Inj IV PRN (17:00)
[2017-05-19] MEDS ORDERED: fentaNYL 100 mcg/2 mL IV PRN (17:00)
[2017-05-19] MEDS ORDERED: Norco 5mg/325mg tab ORAL PRN (17:00)
[2017-05-19] MEDS ORDERED: Metoclopramide 10mg/2ml Inj IVP PRN (17:00)
[2017-05-19] MEDS ORDERED: Ketorolac 30mg Inj IV PRN (17:00)
[2017-05-19] MEDS ORDERED: Atropine Inj 1mg/10ml Syr IV PRN (17:00)
[2017-05-19] MEDS ORDERED: oxyCODONE HCL/Acetaminophen 5/325mg ORAL PRN (17:00)
[2017-05-19] MEDS ORDERED: Midazolam 2mg/2ml Inj IVP PRN (17:00)
[2017-05-19] MEDS ORDERED: LORazepam Inj 2mg/ml 1ml IV PRN (17:00)
[2017-05-19] MEDS ORDERED: Norco 7.5mg/325mg tab ORAL PRN (17:00)
--- NOTE | 2017-05-19 17:04 | Immediate Post-Op Evaluation ---
Immediate Post-Op Evalulation Immediate Post-Op Evalulation Procedure: Relieve Small Bowel Obstruction Date of Evaluation: May 19, 2017 Time of Evaluation: 18:19 IV Fluids: 900 LR Blood Products: 0 Estimated Blood Loss: 50 Urinary Output: 50 Blood Pressure Systolic: 122 Blood Pressure Diastolic: 80 Pulse Rate: 75 Respiratory Rate: 16 O2 Sat by Pulse Oximetry: 99 Temperature (Fahrenheit): 97.9 Pain Score (1-10): 2 Nausea: No Vomiting: No Complications 0 Patient Status: awake, reacts, patent, extubated, none Hydration Status: adequate Dru Gram Ancef IV Given Within 1 Hr of Incision: Yes Time Given: 16:41 Jonel Escalona MD May 19, 2017 17:04
[2017-05-19] MEDS ORDERED: Acetaminophen (Non formulary) 100 ML IV ONE (17:15)
--- NOTE | 2017-05-19 18:26 | Brief Operative Note ---
Immediate Post Operative Note Operative Note Pre-op Diagnosis: bowel obstruction Procedure: diagnostic laparoscopy and laparoscopic lysis of adhesions Post-op Diagnosis: same as pre-op Surgeon: yovany Anesthesiologist: david Anesthesia: general Specimen: none Complications: none Condition: stable Fluids: see records Estimated Blood Loss: minimal Drains: none Implant(s) used?: No Tano Ibrahim May 19, 2017 18:26
[2017-05-19] MEDS ORDERED: Ketorolac 30mg Inj IM PRN (18:30)
[2017-05-19] MEDS: Hydromorphone 0.5mg/0.5ml inj IVP PRN ×2 (18:42→19:07)
[2017-05-19] MEDS ORDERED: LR 1000ml 1,000 ML IVLG SCH (19:30)
--- NOTE | 2017-05-19 19:39 | 48 Hour Post Anesthesia Eval ---
Post Anesthesia Evaluation Procedure: Relieve Small Bowel Obstruction Date of Evaluation: May 19, 2017 Time of Evaluation: 20:21 Blood Pressure Systolic: 125 0: 69 Pulse Rate: 65 Respiratory Rate: 18 Temperature (Fahrenheit): 97.8 O2 Sat by Pulse Oximetry: 97 Airway: patent Nausea: No Vomiting: No Pain Intensity: 2 Hydration Status: adequate Cardiopulmonary Status: Stable Mental Status/LOC: patient returned to baseline Follow-up Care/Observations: 0 Post-Anesthesia Complications: 0 Follow-up care needed: N/A Jonel Escalona MD May 19, 2017 19:39
[2017-05-19] MEDS ORDERED: ceFAZolin sod 2 GM in D5W 110 ML IV SCH (22:00)
--- NOTE | 2017-05-19 22:53 | Nephrology Progress Note ---
Objective Objective Last 24 Hour Vital Signs Date Time Temp Pulse Resp B/P (MAP) Pulse Ox O2 Delivery O2 Flow Rate FiO2 05/19/17 20:13 97.3 60 19 133/79 100 Nasal Cannula 3.0 05/19/17 19:39 65 18 97 05/19/17 19:31 98.2 53 20 124/76 99 Nasal Cannula 3.0 05/19/17 18:53 53 20 134/81 99 Simple Mask 8.0 05/19/17 18:42 55 20 128/80 100 Simple Mask 8.0 05/19/17 18:29 57 20 130/79 100 Simple Mask 8.0 05/19/17 18:18 56 20 132/75 100 Simple Mask 8.0 05/19/17 18:13 61 20 129/81 100 Simple Mask 8.0 05/19/17 18:08 97.9 71 20 122/80 100 Simple Mask 8.0 05/19/17 18:08 75 16 99 05/19/17 08:00 97.9 63 20 115/80 99 Room Air 05/19/17 04:00 97.1 66 18 115/72 100 Room Air 05/19/17 00:00 98.1 60 19 128/74 99 Room Air Intake and Output 05/19/17 05/20/17 19:00 07:00 Intake Total 1937.5 ml Output Total 100 ml Balance 1837.5 ml Intake Oral 0 ml IV Total 1937.5 ml Output Urine Total 50 ml Estimated Blood Loss 50 ml # Voids 5 # Bowel Movements 1 Laboratory Tests 05/19/17 12:15: White Blood Count 4.6L, Red Blood Count 3.50L, Hemoglobin 12.4, Hematocrit 35.2L , Mean Corpuscular Volume 101H, Mean Corpuscular Hemoglobin 35.3H, Mean Corpuscular Hemoglobin Concent 35.1, Red Cell Distribution Width 10.1L, Platelet Count 222, Mean Platelet Volume 7.5, Neutrophils (%) (Auto) , Lymphocytes (%) (Auto) , Monocytes (%) (Auto) , Eosinophils (%) (Auto) , Basophils (%) (Auto) , Differential Total Cells Counted 100, Neutrophils % ( Manual) 58, Lymphocytes % (Manual) 16L, Monocytes % (Manual) 26H, Eosinophils % (Manual) 0, Basophils % (Manual) 0, Band Neutrophils 0, Platelet Estimate Adequate, Platelet Morphology Normal, Macrocytosis 1+, Sodium Level 142, Potassium Level 3.1L, Chloride Level 106, Carbon Dioxide Level 23, Anion Gap 13 , Blood Urea Nitrogen 8, Creatinine 1.0, Estimat Glomerular Filtration Rate > 60 , Glucose Level 126H, Lactic Acid Level 1.60, Calcium Level 8.9 Height (Feet): 5 Height (Inches): 2.00 Weight (Pounds): 120 ARTURO THOMAS May 19, 2017 22:53
[2017-05-19] MEDS: ceFAZolin 2gm/50ml Premix 50 ML IV SCH (23:17)
[2017-05-19] MEDS: HYDROmorphone 1mg/ml Carpuject IVP PRN (23:19)
[2017-05-20] VITALS (7 sets, daily range): BP systolic 112–124; BP diastolic 71–84
[2017-05-20 06:51] LABS: MEAN CORPUSCULAR HEMOGLOBIN 35.9 PG (27.0-31.0); MEAN CORPUSCULAR HGB CONC 35.3 G/DL (32.0-36.0); MEAN CORPUSCULAR VOLUME 102 FL (80-99); MEAN PLATELET VOLUME 7.6 FL (6.5-10.1); PLATELET COUNT 193 K/UL (150-450); RED BLOOD COUNT 3.35 M/UL (4.20-5.40); RED CELL DISTRIBUTION WIDTH 10.3 % (11.6-14.8); WHITE BLOOD COUNT 5.3 K/UL (4.8-10.8)
[2017-05-20] MEDS: ceFAZolin 2gm/50ml Premix 50 ML IV SCH (08:33)
[2017-05-20] MEDS: Pantoprazole Inj IVP SCH (08:34)
[2017-05-20 09:34] LABS: ANION GAP 14 mmol/L (5-15); CALCIUM 8.5 MG/DL (8.5-10.1); CARBON DIOXIDE 20 MMOL/L (21-32); CHLORIDE 107 MMOL/L (98-107); CREATININE 0.9 MG/DL (0.55-1.30); GLOMERULAR FILTRATION RATE > 60 mL/min (>60); POTASSIUM 3.8 MMOL/L (3.5-5.1); SODIUM 141 MMOL/L (136-145)
[2017-05-20 10:42] LABS: BAND NEUTROPHILS % (MANUAL) 0 % (0-8); BASOPHILS % (MANUAL) 0 % (0-2); EOSINOPHILS % (MANUAL) 0 % (0-3); LYMPHOCYTES % (MANUAL) 22 % (20-45); NEUTROPHILS % (MANUAL) 58 % (45-75); PLATELET ESTIMATE ADEQUATE; PLATELET MORPHOLOGY NORMAL; TOTAL CELLS COUNTED 100
[2017-05-20 10:43] LABS: MACROCYTES 1+
--- NOTE | 2017-05-20 11:09 | General Progress Note ---
Progress Note Progress Note Surgery: no acute events. doing well. walking with PT this AM. minimal pain. non n/v/ f/c. labs improved. NG tube with minimal output. not talking much because of NG tube. not swallowing her saliva because of tube. -npo with iv fluids -ng tube to wall suction -okay for ice chips. -awaiting return of bowel function Tano Ibrahim May 20, 2017 11:09
[2017-05-20] MEDS: HYDROmorphone 1mg/ml Carpuject IVP PRN ×2 (12:15→18:45)
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
--- NOTE | 2017-05-20 20:53 | Nephrology Progress Note ---
Assessment/Plan Problem List: (1) SBO (small bowel obstruction) (2) Hypokalemia Assessment: resolved Plan s/p diagnostic laparoscopy and laparoscopic lysis of adhesions Monitor Lytes, correct prn Pain management as needed Continue NPO per surgeons recommendation Monitor intake and output am labs Subjective Constitutional: Denies: no symptoms, chills, diaphoresis, fever, malaise, weakness, other HEENT: Denies: no symptoms, eye pain, blurred vision, tearing, double vision, ear pain, ear discharge, nose pain, nose congestion, throat pain, throat swelling, mouth pain, mouth swelling, other Genitourinary: Denies: no symptoms, burning, discharge, frequency, flank pain, hematuria, incontinence, pain, urgency, other Neurologic/Psychiatric: Denies: no symptoms, anxiety, depressed, emotional problems, headache, numbness, paresthesia, pre-existing deficit, seizure, tingling, tremors, weakness, other Subjective In bed, in no apparent distress, NGT to LIS, complains of nausea Objective Objective Last 24 Hour Vital Signs Date Time Temp Pulse Resp B/P (MAP) Pulse Ox O2 Delivery O2 Flow Rate FiO2 05/20/17 19:15 97.8 05/20/17 16:00 98.0 18 120/76 100 Nasal Cannula 3.0 05/20/17 12:00 97.8 18 118/82 99 Nasal Cannula 3.0 05/20/17 08:00 97.8 69 18 114/73 99 Nasal Cannula 3.0 05/20/17 04:00 98.2 63 18 119/84 99 Nasal Cannula 3.0 05/20/17 00:00 98.2 63 18 112/71 99 Nasal Cannula 3.0 Intake and Output 05/20/17 05/21/17 19:00 07:00 Intake Total 750 ml Output Total 1300 ml Balance 750 ml -1300 ml IV Total 750 ml Output Urine Total 600 ml Gastric Drainage Total 650 ml Emesis 50 ml # Voids 4 Laboratory Tests 05/20/17 05:15: White Blood Count 5.3, Red Blood Count 3.35L, Hemoglobin 12.0, Hematocrit 34.0L , Mean Corpuscular Volume 102H, Mean Corpuscular Hemoglobin 35.9H, Mean Corpuscular Hemoglobin Concent 35.3, Red Cell Distribution Width 10.3L, Platelet Count 193, Mean Platelet Volume 7.6, Neutrophils (%) (Auto) , Lymphocytes (%) (Auto) , Monocytes (%) (Auto) , Eosinophils (%) (Auto) , Basophils (%) (Auto) , Differential Total Cells Counted 100, Neutrophils % ( Manual) 58, Lymphocytes % (Manual) 22, Monocytes % (Manual) 20H, Eosinophils % ( Manual) 0, Basophils % (Manual) 0, Band Neutrophils 0, Platelet Estimate Adequate, Platelet Morphology Normal, Macrocytosis 1+, Sodium Level 141, Potassium Level 3.8, Chloride Level 107, Carbon Dioxide Level 20L, Anion Gap 14 , Blood Urea Nitrogen 9, Creatinine 0.9, Estimat Glomerular Filtration Rate > 60 , Glucose Level 140H, Calcium Level 8.5 Height (Feet): 5 Height (Inches): 2.00 Weight (Pounds): 120 General Appearance: no apparent distress, alert EENT: normal ENT inspection Neck: non-tender, normal alignment Cardiovascular: normal rate, regular rhythm Respiratory/Chest: lungs clear, normal breath sounds Abdomen: soft, tender, other - laparoscopic sites clean and dry Extremities: non-tender, normal inspection, no calf tenderness Neurologic: alert, oriented x 3, responsive, normal mood/affect Sharita Correa N.P. May 20, 2017 20:53
[2017-05-21] MEDS: Ketorolac 30mg Inj IV SCH ×2 (00:56→07:00)
[2017-05-21 04:10] VITALS: BP 123/80
[2017-05-21 07:16] LABS: MEAN CORPUSCULAR HEMOGLOBIN 34.8 PG (27.0-31.0); MEAN CORPUSCULAR HGB CONC 34.3 G/DL (32.0-36.0); MEAN CORPUSCULAR VOLUME 101 FL (80-99); MEAN PLATELET VOLUME 7.1 FL (6.5-10.1); PLATELET COUNT 202 K/UL (150-450); RED BLOOD COUNT 3.22 M/UL (4.20-5.40); RED CELL DISTRIBUTION WIDTH 10.2 % (11.6-14.8); WHITE BLOOD COUNT 5.7 K/UL (4.8-10.8)
[2017-05-21 07:32] LABS: ANION GAP 8 mmol/L (5-15); CALCIUM 8.6 MG/DL (8.5-10.1); CARBON DIOXIDE 27 MMOL/L (21-32); CHLORIDE 110 MMOL/L (98-107); CREATININE 0.8 MG/DL (0.55-1.30); GLOMERULAR FILTRATION RATE > 60 mL/min (>60); POTASSIUM 3.2 MMOL/L (3.5-5.1); SODIUM 145 MMOL/L (136-145)
[2017-05-21 08:00] VITALS: BP 115/73
--- NOTE | 2017-05-21 08:51 | General Progress Note ---
Progress Note Progress Note Surgery: no acute events. doing well. pain minimal. no n/v/f/c. ng tube output minimal. passing flatus and had BM afebrile, HD stable, labs improved abdomen soft, nt/nd, BS+, incision c/d/i -clear liquids -d/c NG tube -d/c IV fluids -shower today -discharge planning. d/c tomorrow. Tano Ibrahim May 21, 2017 08:51
[2017-05-21] MEDS: Docusate 100mg cap ORAL SCH ×2 (09:00→18:00)
[2017-05-21] MEDS: Pantoprazole Inj IVP SCH (09:22)
[2017-05-21 09:28] LABS: BAND NEUTROPHILS % (MANUAL) 0 % (0-8); BASOPHILS % (MANUAL) 0 % (0-2); EOSINOPHILS % (MANUAL) 1 % (0-3); LYMPHOCYTES % (MANUAL) 28 % (20-45); MACROCYTES 1+; NEUTROPHILS % (MANUAL) 59 % (45-75); PLATELET ESTIMATE ADEQUATE; PLATELET MORPHOLOGY NORMAL; TOTAL CELLS COUNTED 100
[2017-05-21 11:54] LABS: OTHERS PATHOLOGIST COMMENT
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
[2017-05-21 12:57] VITALS: BP 116/78
[2017-05-21 16:00] VITALS: BP 115/81
[2017-05-21 20:15] VITALS: BP 122/79
[2017-05-21 23:38] VITALS: BP 108/77
[2017-05-22 04:00] VITALS: BP 103/66
[2017-05-22 05:02] VITALS: BP 103/66
[2017-05-22 06:24] LABS: BASOPHILS % (AUTO) 1.7 % (0.0-2.0); EOSINOPHILS % (AUTO) 9.4 % (0.0-3.0); LYMPHOCYTES % (AUTO) 22.7 % (20.0-45.0); MEAN CORPUSCULAR HEMOGLOBIN 33.4 PG (27.0-31.0); MEAN CORPUSCULAR HGB CONC 33.6 G/DL (32.0-36.0); MEAN CORPUSCULAR VOLUME 99 FL (80-99); MEAN PLATELET VOLUME 7.2 FL (6.5-10.1); MONOCYTES % (AUTO) 15.2 % (1.0-10.0); NEUTROPHILS % (AUTO) 51.1 % (45.0-75.0); PLATELET COUNT 207 K/UL (150-450); RED BLOOD COUNT 3.37 M/UL (4.20-5.40); WHITE BLOOD COUNT 5.9 K/UL (4.8-10.8)
[2017-05-22 06:39] LABS: ANION GAP 11 mmol/L (5-15); CALCIUM 8.5 MG/DL (8.5-10.1); CARBON DIOXIDE 24 MMOL/L (21-32); CHLORIDE 104 MMOL/L (98-107); CREATININE 0.8 MG/DL (0.55-1.30); GLOMERULAR FILTRATION RATE > 60 mL/min (>60); POTASSIUM 3.1 MMOL/L (3.5-5.1); SODIUM 138 MMOL/L (136-145)
[2017-05-22 08:00] VITALS: BP 125/81
[2017-05-22] MEDS: Pantoprazole Inj IVP SCH (08:53)
[2017-05-22] MEDS: Docusate 100mg cap ORAL SCH (08:54)
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
[2017-05-22] MEDS ORDERED: KCl 10% 40mEq/30ml liquid NG ONE (11:30)
[2017-05-22 12:00] VITALS: BP 120/75
--- NOTE | 2017-05-22 13:38 | General Progress Note ---
Progress Note Progress Note Surgery doing well. no issues. comfortable. no pain. no n/v/f/c. passing flatus and normal BM afebrile, HD stable, labs okay exam benign. wounds c/d/i okay to d/c from surgical standpoint no meds needed activity as tolerated follow up with me this thursday. Tano Ibrahim May 22, 2017 13:38
[2017-05-22 16:00] VITALS: BP 112/82
[2017-05-22] MEDS ORDERED: ZOFRAN4 M3 ORAL (16:52)
[2017-05-22] MEDS ORDERED: TYLENOL EXTRA500 MG ORAL (16:53)
--- NOTE | 2017-05-23 05:00 | Operative Note - Dictated ---
DATE OF OPERATION: 05/19/2017 PREOPERATIVE DIAGNOSIS: Bowel obstruction. POSTOPERATIVE DIAGNOSIS: Adhesive bowel obstruction. OPERATION PERFORMED: Diagnostic laparoscopy with laparoscopic lysis of adhesions. ATTENDING SURGEON: Tano Ibrahim M.D. ANESTHESIOLOGIST: Jonel Escalona M.D. 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 SPECIMENS: None. COMPLICATIONS: None. CONDITION: Stable. FLUIDS: Please see anesthesia record. ESTIMATED BLOOD LOSS: Minimal. DRAINS: None. ANTIBIOTICS: 2 g of Ancef IV were given 1 hour prior to cut time. WOUND CLASSIFICATION: Class 1. COUNTS: Sponge and needle count correct x2. INDICATIONS FOR PROCEDURE: This is a 37-year-old female who presented to the emergency room with complaints of worsening abdominal pain, nausea, and emesis. CT scan was performed in the emergency department that identified a potential small-bowel obstruction with the transition point in the right lower quadrant. The patient has a history of prior and likely due to adhesive process. This is her first bowel obstruction. NG tube was placed and she was admitted for conservative management. Over the subsequent 48 to 72 hours, she initially slowly began to improve, but then condition began to deteriorate with abdominal distention, worsening nausea, and emesis. Initially, the patient was very noncompliant with medical care and withdrawn NG tube and would not follow medical directions, but as her condition worsened, she became more subdued and understanding of the condition that she is in. Unfortunately, she failed conservative management and a diagnostic laparoscopy was recommended for evaluation with potential of exploratory laparotomy, bowel resection, and ostomy if necessary. The risks, benefits, and alternatives of surgery were discussed with the patient and the patient's family in detail on multiple accounts, at which time, the patient expressed understanding and consented to surgery. OPERATIVE NOTE: The patient was taken to the operating room and placed on the operating table in supine position with bilateral arms out. All bony prominences were well padded with gel pads. SCDs were placed. Preoperative time-out was taken identifying the patient, procedure, operative staff, and surgical staff. General anesthesia was induced and the patient was intubated. Fregoso catheter was inserted under sterile condition. The abdomen was then prepped and draped in standard surgical fashion. An umbilical incision was made using a fresh #11 scalpel. Incision was carried down to the fascia with blunt dissection and electrocautery as necessary. The fascia was incised and elevated and entry into the abdomen confirmed visually without complication. A 12 mm Demetrio trocar was inserted with using the open Demetrio technique without complication. The abdomen was insufflated to 15 mmHg. The patient tolerated the insufflation well. The abdomen was inspected and upon initial inspection, there was distally some normal loops of decompressed small bowel, but proximally, there were some very thin dilated small bowel with mildly dusky appearance. Secondary trocars were then placed under anesthesia, and there was some serous free fluid in the abdomen. Secondary trocars were placed under direct visualization beginning at the left lower quadrant and suprapubic region. Laparoscopic graspers were used to identify the cecum. The appendix was noted to be normal as well as ascending colon. The decompressed normal small bowel was identified at the ileocecal valve and ran proximally at a point, which a single interloop adhesion was identified as the transition point of the bowel obstruction with decompressed bowel distally and very dilated bowel proximally. This adhesion was itself taken down during running the bowel without complication. The remainder of the small bowel was evaluated and no other abnormalities or adhesions were found. Only, there is a single interloop adhesion causing a near total complete bowel obstruction. The stomach was identified. NG-tube was noted to be in place and approximately 1 liter of bilious content was evacuated from the NG tube during the procedure. At this time, the fluid in the abdomen was evacuated and the remaining of the abdomen was inspected and no other abnormalities were found. Decision was made to begin the conclusion of our procedure. Upon conclusion of the procedure, the dilated distended small bowel had already began to collapse somewhat and pink up and look healthier. This was very reassuring. Secondary trocars were removed under direct visualization without complication. The abdomen was then allowed to desufflate and the umbilical trocar removed. The umbilical trocar site fascia was closed using a [id number] #0 Vicryl suture. Remaining skin incisions were closed using a 4-0 Monocryl subcuticular suture. Abdomen was then cleansed and skin glue was applied. The patient tolerated the procedure well, was extubated, and taken to the postanesthetic care unit in stable condition. Tano Ibrahim M.D. DR: AMRIK JOB#: [id number] CC: ALEJO
--- NOTE | 2017-05-25 09:42 | Discharge Summary ---
Discharge Summary Hospital Course Date of Admission May 15, 2017 at 05:24 Date of Discharge May 22, 2017 at 17:49 Admitting Diagnosis SMALL BOWEL OBSTRUCTION HPI Nilam Schmid is a 37 year old female who was admitted on May 15, 2017 at 05:24 for Small Bowel Obstruction Hospital Course dc summary #[id number] Discharge Medications Continued Medications: Acetaminophen* (Tylenol Extra Strength*) 500 Mg Tablet 500 MG ORAL Q4HR PRN for Mild Pain/Temp > 100.5, TAB 0 Refills Ondansetron* (Zofran*) 4 Mg Tablet 4 MG ORAL Q8HR PRN for Nausea & Vomiting, #30 TAB Discharge Condition Upon Discharge: stable Discharge Disposition Patient was discharged to Home (01) Discharge Diagnoses: Discharge Instructions Discharge Instructions Special Instructions I have been assigned to complete a D/C Summary on this account. I was not involved in the patient management Rhonda Rudolph NP (Vanchtein) May 25, 2017 09:42
--- NOTE | 2017-05-26 01:30 | Discharge Summary 2 SIG ---
DATE OF ADMISSION: 05/15/2017 DATE OF DISCHARGE: 05/22/2017 REASON FOR ADMISSION: 37-year-old female with a history of ovarian cyst surgery and breast augmentation, presented with abdominal pain, nausea, and vomiting for 1 day. Upon presentation, vital signs were stable. No fever. No leukocytosis. CT of the abdomen and pelvis revealed small-bowel obstruction. The patient was admitted for further management. HOSPITAL STAY: The patient was admitted. The patient was kept NPO. GI and surgery consults were requested. The patient was started on NG tube for bowel decompression. The patient was started on IV fluids. Pain management was addressed. Serial KUB followed. The patient demonstrated no improvement. Subsequently, on 05/19/2017, the patient undergone diagnostic laparoscopy with laparoscopic lysis of adhesions. After surgery, the patient clinically improving. Ice chips initially allowed. When bowel function returned , started on clear liquid diet and slowly advanced as tolerated. Antiemetic provided as needed. Pain management provided. Eventually on the regular diet, able to tolerate. The patient was stable for discharge home and follow up with the surgeon as advised. FINAL DIAGNOSES: 1. Abdominal pain. 2. Adhesive bowel obstruction. 3. Status post on 05/19/2017 diagnostic laparoscopy with laparoscopic lysis of adhesion. 4. History of ovarian cyst surgery. DISCHARGE MEDICATIONS: See medication reconciliation list. DISCHARGE INSTRUCTIONS: The patient was discharged home. FOLLOW-UP: Follow up with the surgeon as an outpatient. Bennett Mcqueen M.D. I have been assigned to dictate discharge summary on this account and I was not involved in the patient's management. Rhonda Sethty N.PMichell DR: SALBADOR JOB#: [id number] CC: ALEJO
== END 2017-05-22 17:49 | disposition home or self-care (01) | DRG 337 ==
LOC: EMR 00:47 → 3E 05:24 → EDBEDREQ 05:29 → 3E 05-18 18:28
PROC: 0DN84ZZ Release Small Intestine, Percutaneous Endoscopic Approach (ICD-10-PCS; principal; 2017-05-19 14:30)
DX: K56.51 Intestinal adhesions [bands], with partial obstruction (principal); F41.9 Anxiety disorder, unspecified; Z98.890 Other specified postprocedural states; Z91.19 Patient's noncompliance with other medical treatment and regimen
CPT/HCPCS: 36415; 74000; 74177; 80048; 80053; 81003; 81025; 82248; 83605; 83690; 85007; 85025; 94003; 94150; 96361; 96374; 96375; 99284; J2405; J2710; J2765

== ENCOUNTER 2019-04-07 12:46 | Emergency (ER) | payer BC, OTHER ==
[~2019-04-07] VITALS: Ht 157.5 cm; Wt 59.0 kg
[~2019-04-07 12:46] MED LIST changes: +TYLENOL EXTRA500 MG ORAL
[2019-04-07] MEDS ORDERED: CYCLOBENZAPRINE10 MG ORAL (13:03)
[2019-04-07] MEDS ORDERED: TOPIRAMATE25 MG ORAL (13:03)
[2019-04-07] MEDS ORDERED: GABAPENTIN300 MG ORAL (13:03)
[2019-04-07 13:07] VITALS: BP 114/68
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
[2019-04-07] MEDS ORDERED: Cyclobenzaprine 10mg Tab ORAL ONE (13:15)
--- NOTE | 2019-04-07 13:45 | NUR ---
ED Nurse Note: pt went down for CT scan in stable condition.
--- NOTE | 2019-04-07 14:03 | NUR ---
ED Nurse Note: pt came back from CT scan in stable condition.
--- NOTE | 2019-04-07 14:13 | Diagnostic Imaging Report ---
Indications: 10 out of 10 headache Technique: Spiral acquisitions obtained through the brain. Angled axial and coronal 5 x 5 mm slices were reconstructed. Total dose length product 1326.82 mGycm. CTDI vol(s) 70.38 mGy. Dose reduction achieved using automated exposure control Comparison: None. Findings: No acute intracranial hemorrhage or edema. No mass effect or midline shift. Normal size ventricles and extra-axial CSF spaces. The mastoids are clear. Visualized orbits and sinuses are unremarkable. Intact calvarium Impression: Negative The CT scanner at [facility] is accredited by the [employer] and the scans are performed using protocols designed to limit radiation exposure to as low as reasonably achievable to attain images of sufficient resolution adequate for diagnostic evaluation.
[2019-04-07 14:35] VITALS: BP 126/71
--- NOTE | 2019-04-07 14:35 | NUR ---
ED Nurse Note: Pt cleared by health care Provider for discharge. DC instructions/prescription was given and explained to pt and verbalized understanding of teachings. Pt provided work compensation noted with return to work note. All medical deviecs such as ID band removed. Pt is AAO x4, ambulatory and left with all personal belongings.
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
== END 2019-04-07 14:35 | disposition home or self-care (01) ==
LOC: EMR 13:40
DX: S09.90XA Unspecified injury of head, initial encounter (principal); Y04.2XXA Assault by strike against or bumped into by another person, initial encounter
CPT/HCPCS: 70450; 99284